=== PATIENT | female | born 2000 | race Two or more races ===

== ENCOUNTER 2023-05-11 17:59 | Emergency (ER) | payer OTHER ==
[~2023-05-11] VITALS: Ht 160 cm; Wt 50.3 kg
== END 2023-05-11 22:24 | disposition home or self-care (01) ==
LOC: ER 17:59
DX: O20.8 Other hemorrhage in early pregnancy (principal); Z3A.08 8 weeks gestation of pregnancy; R10.2 Pelvic and perineal pain

== ENCOUNTER 2023-06-24 11:12 | Outpatient (CLI) | payer OTHER | END 2023-06-24 11:18 | disposition home or self-care (01) | LOC: SONOGRAMA 11:12 | PROVIDERS: ATTEND Obstetrics & Gynecology | DX: Z3A.13 13 weeks gestation of pregnancy (principal) ==

== ENCOUNTER 2023-07-27 22:12 | Emergency (ER) | payer OTHER ==
[~2023-07-27] VITALS: Ht 160 cm; Wt 50.3 kg
[2023-07-27] MEDS ORDERED: PRENA1 TRUE CO1 EACH (22:17)
[2023-07-27 23:55] LABS: HEMATOCRIT 28.3 % (36.0-45.00); MEAN CELL VOLUME 77.5 fL (80.00-100.00); MEAN CORPUSCULAR HGB CONC 33.7 g/dl (32.0-36.0); PLATELET COUNT 168 K/uL (150-450); RED BLOOD COUNT 3.64 M/uL (4.00-6.00); RED CELL DISTRIBUTION WIDTH 15.4 % (11.5-14.5)
[2023-07-28 00:03] LABS: HEMOGLOBIN 9.5 g/dL (12.0-15.00)
[2023-07-28] MEDS ORDERED: CEPHALEXIN500 MG PO ×2 (03:18→03:40)
== END 2023-07-28 03:41 ==
LOC: ER 22:12
PROVIDERS: Nurse Practitioner Family
DX: O23.42 Unspecified infection of urinary tract in pregnancy, second trimester (principal); B96.89 Other specified bacterial agents as the cause of diseases classified elsewhere; N39.0 Urinary tract infection, site not specified; Z3A.15 15 weeks gestation of pregnancy